=== PATIENT | female | born 1970 | race Caucasian/White ===

== ENCOUNTER → 2017-10-10 | Outpatient (CLI) | payer MEDICARE, OTHER ==
[~2017-10-10] MED LIST: ALBU8.5H5 INH; CETI10TA24 PO; CIPR500T87 PO; DIAZ10TA PO; ESOM40CA PO; HYDR25TA11 PO; KETO60VI23 IM; LUBI24CA7 PO; MONT10TA6 PO; PROM25VI5 IM; QVAR INH
== END | disposition home or self-care (01) ==
LOC: CVU 12:27
PROVIDERS: ATTEND Internal Medicine Cardiovascular Disease
DX: Q21.1 Atrial septal defect (principal); I10 Essential (primary) hypertension; Z87.891 Personal history of nicotine dependence
CPT/HCPCS: 93306